=== PATIENT | male | born 1980 | race Hispanic/Latino ===

== ENCOUNTER 2022-05-30 01:56 | Inpatient (IN) | payer BC ==
[2022-05-30] VITALS (7 sets, daily range): BP systolic 117–140; BP diastolic 71–91
[~2022-05-30] VITALS: Ht 170.2 cm; Wt 106.6 kg
[2022-05-30] MEDS: HYDROMORPHONE 2MG/ML 2 MG/ML ML IV PRN ×2 (04:24→15:01)
[2022-05-30 05:04] LABS: BASOPHILS # (AUTO) 0.1 (0.0-0.1); BASOPHILS % 0.4 % (0.0-1.0); EOSINOPHILS # (AUTO) 0.1 (0.0-0.4); HEMATOCRIT 43.7 % (38.2-49.6); HEMOGLOBIN 14.2 g/dL (14.0-18.0); LYMPHOCYTES # (AUTO) 5.7 (1.0-3.2); LYMPHOCYTES % 42.2 % (18.0-39.1); MEAN CORPUSCULAR HEMOGLOBIN 27.4 pg (28-32); MEAN CORPUSCULAR HGB CONC 32.5 g/dL (31-35); MEAN CORPUSCULAR VOLUME 84.4 fL (81-99); MONOCYTES # (AUTO) 0.8 (0.2-0.8); MONOCYTES % 5.7 % (4.4-11.3); NEUTROPHILS # (AUTO) 6.8 (2.1-6.9); NEUTROPHILS % 50.3 % (38.7-80.0); PLATELET COUNT 296 x10e3/uL (140-360); RED BLOOD COUNT 5.18 x10e6/uL (4.3-5.7); RED CELL DISTRIBUTION WIDTH 13.1 % (11.7-14.4)
[2022-05-30 05:26] LABS: ALBUMIN 3.7 g/dL (3.5-5.0); ALBUMIN/GLOBULIN RATIO 0.9 (0.8-2.0); ANION GAP 13.8 mmol/L (8-16); CALCIUM 8.2 mg/dL (8.4-10.2); CREATININE, SERUM 0.91 mg/dL (0.72-1.25); POTASSIUM 3.8 mmol/L (3.5-5.1)
[2022-05-30] MEDS ORDERED: METFORMIN HCL500 MG PO (05:54)
[2022-05-30] MEDS ORDERED: FLAGYL375 MG PO (05:56)
[2022-05-30] MEDS ORDERED: BACTRIM DS TAB1 EACH PO (05:57)
[2022-05-30] MEDS: ONDANSETRON HCL INJ 2MG/ML 2ML 2 MG/ML VIAL IV PRN ×2 (08:54→15:00)
[2022-05-30] MEDS: SODIUM CHLORIDE 0.9% 1000ML 1,000 ML IV SCH ×3 (15:00→22:00)
[2022-05-31] VITALS (7 sets, daily range): BP systolic 119–128; BP diastolic 77–83
[2022-05-31] MEDS: SODIUM CHLORIDE 0.9% 1000ML 1,000 ML IV SCH ×3 (03:30→23:30)
[2022-05-31 04:50] LABS: BASOPHILS % 0.4 % (0.0-1.0); EOSINOPHILS # (AUTO) 0.1 (0.0-0.4); EOSINOPHILS % 0.8 % (0.0-6.0); HEMATOCRIT 41.8 % (38.2-49.6); HEMOGLOBIN 13.9 g/dL (14.0-18.0); LYMPHOCYTES # (AUTO) 2.3 (1.0-3.2); LYMPHOCYTES % 30.2 % (18.0-39.1); MEAN CORPUSCULAR HGB CONC 33.3 g/dL (31-35); MEAN CORPUSCULAR VOLUME 84.1 fL (81-99); MONOCYTES # (AUTO) 0.6 (0.2-0.8); MONOCYTES % 7.5 % (4.4-11.3); NEUTROPHILS # (AUTO) 4.6 (2.1-6.9); NEUTROPHILS % 60.8 % (38.7-80.0); PLATELET COUNT 254 x10e3/uL (140-360); RED BLOOD COUNT 4.97 x10e6/uL (4.3-5.7); RED CELL DISTRIBUTION WIDTH 13.3 % (11.7-14.4)
[2022-05-31 05:09] LABS: ANION GAP 14.4 mmol/L (8-16); CALCIUM 8.2 mg/dL (8.4-10.2); CREATININE, SERUM 0.71 mg/dL (0.72-1.25); POTASSIUM 4.4 mmol/L (3.5-5.1)
[2022-06-01] VITALS: BP 112/80
[2022-06-01] MEDS: SODIUM CHLORIDE 0.9% 1000ML 1,000 ML IV SCH ×2 (03:30→10:30)
[2022-06-01 04:00] VITALS: BP 119/75
[2022-06-01 07:57] VITALS: BP 118/75
[2022-06-01 08:00] VITALS: BP 118/75
== END 2022-06-01 12:15 | disposition home or self-care (01) | DRG 392 ==
LOC: MED/SURG 02:50
DX: K57.20 Diverticulitis of large intestine with perforation and abscess without bleeding (principal); Z20.822 Contact with and (suspected) exposure to COVID-19; E11.69 Type 2 diabetes mellitus with other specified complication; Z79.4 Long term (current) use of insulin; E78.5 Hyperlipidemia, unspecified
CPT/HCPCS: 36415; 80048; 80053; 82948; 83036; 85025; J2405; J2543; J7030